=== PATIENT | male | born 1945 | race Hispanic/Latino ===

== ENCOUNTER 2019-06-26 18:02 | Emergency (ER) | payer MEDICARE ==
[2019-06-26] MEDS ORDERED: Adacel (T-DAP) 0.5 ML SYRINGE ONE (18:07)
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
[2019-06-26] MEDS ORDERED: Lidocaine 1% (PF) 30 ML VIAL ONE (18:26)
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
[2019-06-26] MEDS ORDERED: Fluorescein Opthalmic Strip ONE (19:00)
[2019-06-26] MEDS ORDERED: Proparacaine 0.5% Opth 15 ML BOT ONE (19:00)
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
== END 2019-06-26 20:22 | disposition home or self-care (01) ==
LOC: ERS 18:02
DX: B34.9 Viral infection, unspecified (principal); J45.909 Unspecified asthma, uncomplicated
CPT/HCPCS: 12013; 12054; 70450; 70486; 71045; 72125; 90471; 90715; G0390; J2001